=== PATIENT | male | born 1980 | race Caucasian/White ===

== ENCOUNTER 2019-05-21 18:56 | Emergency (ER) | payer MEDICAID ==
[2019-05-21] MEDS ORDERED: Ketorolac 10 MG Tab PO ONE (18:57)
--- NOTE | 2019-05-21 19:07 | EDM.PDOC ---
ED HPI GENERAL MEDICAL PROBLEM - General Chief Complaint: General Stated Complaint: right flank pain Time Seen by Provider: 05/21/19 18:56 Source of Information: Reports: Patient History Limitations: Reports: No Limitations - History of Present Illness INITIAL COMMENTS - FREE TEXT/NARRATIVE: in with c/o right flank pain going into his right testicle for the past few days , has had similar sx in the past, no nvdc, no fever or chills, no other sx Onset: Gradual Duration: Day(s): Location: Reports: Other (right flank) Quality: Reports: Same as Previous Episode, Sharp Severity: Moderate Improves with: Reports: None Worsens with: Reports: None Associated Symptoms: Reports: No Other Symptoms. Denies: Chest Pain, Rash, Weakness Treatments DISPATCH LEAD: Reports: Other (see below) (nonje) Right Flank Pain Score (Numeric/FACES): 4 - Related Data Allergies Allergy/AdvReac Type Severity Reaction Status Date / Time No Known Allergies Allergy Verified 05/21/19 18:59 Home Meds: Home Meds . [No Known Home Meds] 04/10/19 [History] ED ROS GENERAL - Review of Systems Review Of Systems: See Below Constitutional: Reports: No Symptoms. Denies: Fever, Chills HEENT: Reports: No Symptoms Respiratory: Reports: No Symptoms. Denies: Shortness of Breath Cardiovascular: Reports: No Symptoms. Denies: Chest Pain GI/Abdominal: Reports: Nausea. Denies: Abdominal Pain, Vomiting : Reports: Flank Pain (right). Denies: Frequency, Urgency, Urinary Retention Musculoskeletal: Reports: No Symptoms. Denies: Neck Pain, Shoulder Pain, Back Pain Skin: Reports: No Symptoms. Denies: Bruising, Rash, Erythema Neurological: Reports: No Symptoms. Denies: Confusion, Headache Psychiatric: Reports: No Symptoms ED EXAM, GENERAL - Physical Exam Exam: See Below Exam Limited By: No Limitations General Appearance: Alert, WD/WN, No Apparent Distress Ears: Normal External Exam Nose: Normal Inspection Throat/Mouth: Normal Inspection, Normal Lips, Normal Voice, No Airway Compromise Head: Atraumatic, Normocephalic Neck: Normal Inspection, Supple, Non-Tender, Full Range of Motion Respiratory/Chest: No Respiratory Distress, Lungs Clear, Normal Breath Sounds, Chest Non-Tender Cardiovascular: Normal Peripheral Pulses, Regular Rate, Rhythm, No Murmur Peripheral Pulses: 2+: Radial (R) GI/Abdominal: Soft, Non-Tender (Male) Exam: No Hernia, Normal Inspection, Circumcised, Cremasteric Reflex ( normal bilateral ). No: Hernia, Inguinal Lymphadenopathy, Penile Lesions, Scrotal Swelling, Scrotum Tenderness (L), Scrotum Tenderness (R), Suprapubic Fullness, Testicular Mass, Testicular Tenderness (L), Testicular Tenderness (R) , Urethral Discharge Back Exam: Normal Inspection, Full Range of Motion. No: CVA Tenderness (L), CVA Tenderness (R) Extremities: Normal Inspection, Normal Range of Motion, Non-Tender, Normal Capillary Refill Neurological: Alert, Oriented, Normal Cognition, Normal Gait, No Motor/Sensory Deficits Psychiatric: Normal Affect, Normal Mood Skin Exam: Warm, Dry, Intact, Normal Color Course - Vital Signs Text/Narrative:: cbc/general chem and UA are neg, CT abd and pelvis is also neg for any renal calculi, no testicle pain with palpation, unsure actual cause of his sx, will give toradol and advise to f/u with pcp this week and return to ER sooner if worse or problems Last Recorded V/S: Last Vital Signs Temp 37.1 C 05/21/19 19:00 Pulse 88 05/21/19 19:00 Resp 18 05/21/19 19:00 BP 123/91 H 05/21/19 19:00 Pulse Ox 98 05/21/19 19:00 - Orders/Labs/Meds Orders: Active Orders 24 hr Category Date Time Status Abdomen Pelvis wo Cont [CT] Stat Exams 05/21/19 19:01 Ordered Labs: Laboratory Tests 05/21/19 05/21/19 05/21/19 Range/Units 18:58 18:58 18:58 WBC 9.6 (5.0-10.0) 10^3/uL RBC 4.94 (4.50-6.00) 10^6/uL Hgb 15.5 (14.0-18.0) g/dL Hct 45.0 (40.0-54.0) % MCV 91.1 (82.0-94.0) fL MCH 31.4 (27.0-32.0) pg MCHC 34.4 (33.0-38.0) g/dL RDW Coeff of Gianna 12.8 (11.0-15.0) % Plt Count 371 (150-400) 10^3/uL Neut % (Auto) 51.4 (35-85) % Lymph % (Auto) 37.3 (10-55) % Powell % (Auto) 7.7 (0-16) % Eos % (Auto) 3.1 (0-5) % Baso % (Auto) 0.5 (0-3) % Neut # (Auto) 4.90 (1.80-7.00) 10^3/uL Lymph # (Auto) 3.56 (1.00-4.80) 10^3/uL Powell # (Auto) 0.74 (0.00-0.80) 10^3/uL Eos # (Auto) 0.30 (0.00-0.45) 10^3/uL Baso # (Auto) 0.05 10^3/uL Sodium 143 (136-145) mEq/L Potassium 4.1 (3.5-5.0) mEq/L Chloride 104 (98-106) mEq/L Carbon Dioxide 30 (21-32) mmol/L BUN 14 (7-18) mg/dL Creatinine 0.9 (0.7-1.3) mg/dL Est Cr Clr Drug Dosing 95.86 mL/min Estimated GFR (MDRD) > 60 (>=60) mL/min Glucose 111 H (75-99) mg/dL Calcium 8.9 (8.4-10.1) mg/dL Total Bilirubin 0.3 (0.0-1.0) mg/dL AST 20 (15-37) U/L ALT 21 (12-78) U/L Alkaline Phosphatase 95 (46-116) U/L Total Protein 6.9 (6.4-8.2) g/dL Albumin 3.8 (3.4-5.0) g/dL Urine Color Yellow (YELLOW) Urine Appearance Clear (CLEAR) Urine pH 5.0 (4.5-8.0) Ur Specific [place] >= 1.030 H (1.003-1.020) Urine Protein Negative (NEGATIVE) mg/dL Urine Glucose (UA) Negative (NEGATIVE) mg/dL Urine Ketones Negative (NEGATIVE) mg/dL Urine Occult Blood Small H (NEGATIVE) Urine Nitrite Negative (NEGATIVE) Urine Bilirubin Negative (NEGATIVE) Urine Urobilinogen 0.2 (0.2-1.0) EU/dL Ur Leukocyte Esterase Negative (NEGATIVE) Urine RBC 0-5 (0-5) /HPF Urine WBC Not seen (0-5) /HPF Ur Epithelial Cells Occasional H (NOT SEEN) /HPF Urine Bacteria Occasional H (NOT SEEN) /HPF Urine Mucus Moderate H (NOT SEEN) /HPF Meds: Medications Discontinued Medications Generic Name Dose Route Start Last Admin Trade Name Randee PRN Reason Stop Dose Admin Ketorolac Tromethamine 30 mg 05/21/19 18:58 Toradol IVPUSH 05/21/19 18:59 ONETIME ONE Ondansetron HCl 4 mg 05/21/19 19:00 Zofran IVPUSH 05/21/19 19:01 ONETIME ONE - Radiology Interpretation Free Text/Narrative:: neg ct of the abd and pelvis, radiology reading pending Departure - Departure Time of Disposition: 19:51 Disposition: Home, Self-Care 01 Clinical Impression: Right flank pain - Discharge Information *PRESCRIPTION DRUG MONITORING PROGRAM REVIEWED*: Not Applicable *COPY OF PRESCRIPTION DRUG MONITORING REPORT IN PATIENT GEE: Not Applicable Instructions: Flank Pain, Adult, [id number] Forms: ED Department Discharge Additional Instructions: increase fluids follow up with your family doctor this week, call Sunday for an appointment time Toradol 10mg 3 x a day as needed for pain return to ER as needed, sooner if worse or problems - Problem List & Annotations (1) Right flank pain SNOMED Code(s): 258808379 Code(s): R10.9 - UNSPECIFIED ABDOMINAL PAIN Status: Acute Priority: Medium Current Visit: Yes - Problem List Review Problem List Initiated/Reviewed/Updated: Yes - My Orders Last 24 Hours: My Active Orders 05/21/19 19:01 Abdomen Pelvis wo Cont [CT] Stat - Assessment/Plan Last 24 Hours: My Active Orders 05/21/19 19:01 Abdomen Pelvis wo Cont [CT] Stat Plan: as above
[2019-05-21 19:33] LABS: CHLORIDE,CL 104 mEq/L (98-106); SODIUM,NA 143 mEq/L (136-145)
[2019-05-21] MEDS: Ketorolac 30 MG/ML SDV IVPUSH ONE (20:11)
[2019-05-21] MEDS: Ondansetron 4 MG/2 ML SDV IVPUSH ONE (20:12)
[2019-05-21] MEDS: Take Home: Ketorolac 10 MG Tab, 4 Tab Pack PO ONE (20:12)
== END 2019-05-21 20:10 | disposition home or self-care (01) ==
LOC: CC.ED 18:56
DX: R10.9 Unspecified abdominal pain (principal)
CPT/HCPCS: 36415; 74176; 80053; 81001; 85025; 99284-25; A9270-GY